=== PATIENT | male | born 2005 | race Caucasian/White ===

== ENCOUNTER 2023-06-30 23:04 | Inpatient (IN) ==
[2023-06-30 23:45] LABS: Basophils # (auto) 0.04 K/uL (0.00-0.20); Basophils % (auto) 0.7 %; Eosinophils # (auto) 0.14 K/uL (0.00-0.50); Eosinophils % (auto) 2.4 %; Hematocrit (blood only) 45.9 % (42.0-52.0); Hemoglobin 16.4 g/dl (14.0-18.0); Immature Granulocytes # (auto) 0.01 K/uL (0.01-0.20); Immature Granulocytes % (auto) 0.2 %; Lymphocytes # (auto) 1.36 K/uL (1.20-3.40); Lymphocytes % (auto) 23.4 %; Mean Corpuscular Hemoglobin 31.9 pg (25.0-34.0); Mean Corpuscular Hgb Conc 35.7 g/dL (32.0-36.0); Mean Corpuscular Volume 89.3 fL (80.0-100.0); Mean Platelet Volume 9.7 fL (9.4-12.4); Monocytes # (auto) 0.54 K/uL (0.11-0.59); Monocytes % (auto) 9.3 %; Neutrophils # (auto) 3.71 K/uL (1.40-6.50); Platelet Count 227 K/uL (130-400); RDW Coefficient of Variation 12.7 % (11.5-14.5); RDW Standard Deviation 41.6 fL (36.4-46.3); Red Blood Count 5.14 M/uL (4.70-6.10)
[2023-06-30 23:58] LABS: Albumin Globulin Ratio 1.7 (0.9-2); Albumin Level 4.7 gm/dl (3.4-5.0); BUN Creatinine Ratio 9.9 (10-20); Calcium 9.2 mg/dl (8.6-10.3); Creatinine Clr Calc Pharmacy 140.3 ml/min; Est GFR (African American) 140.1 ml/min; Est GFR (Non-African American) 120.9 ml/min; Globulin 2.7 gm/dl (2.5-4.0); Potassium 3.9 mmol/L (3.5-5.1); Total Protein 7.4 gm/dl (6.0-8.3)
[2023-07-01 00:08] LABS: Acetaminophen < 3 ug/ml (10-30); Salicylate < 3.0 mg/dl (3.0-30)
--- NOTE | 2023-07-01 00:08 | Emergency Department Note ---
Impression & Plan Suicidal ideation ED Provider Note NAME: VERNELL LAWSON AGE: 18 SEX: M : 2005 ARRIVES VIA: Walk-In INFORMANT: [Patient][mother] ED PROVIDER(S): [Weston Carreno MD] CHIEF COMPLAINT: Mental health evaluation HISTORY OF PRESENT ILLNESS: The patient is a 18-year-old male who presents to the ER with some suicidal thoughts and feelings of depression. The patient has been depressed for some time. He states that his life really is what has and depressed. He is working full-time, he has issues financially and with his car. The tipping stone though for him was a recent DUI. The patient feels that everything is a mess in his life right now. He has had some suicidal thoughts. He has thought about finding a gun although he currently has no access to a weapon. He has thought about crashing his car. He reached out to his mother today, he presents for evaluation asking for a voluntary inpatient psychiatric admission. The patient is not currently on any psychiatric medication. He has not seen a therapist or counselor or psychiatrist. He has never been hospitalized for psychiatric reasons. As per the mother, there are guns in the home although, she does not think he knows where they are located. PMHx/PSHx/Social Hx: See Below PHYSICAL EXAM: GENERAL: Patient is in no acute distress. HEENT: No acute trauma, normocephalic atraumatic, mucous membranes moist, no nasal congestion. NECK: No stridor, no adenopathy, no meningismus, trachea is midline. LUNGS: Clear to auscultation bilaterally, no wheeze, no rhonchi, breath sounds equal. HEART: Without murmurs gallops or rubs, regular rate and rhythm. ABDOMEN: Soft, nontender, no peritonitis. EXTREMITIES: No cyanosis, full range of motion of all the joints without pain or difficulty. NEUROLOGIC: Oriented x 3, no acute motor or sensory deficits, no focal weakness. SKIN: No jaundice, no diaphoresis. Psychiatric: Cooperative, voluntary, admits to suicidal ideation. DIFFERENTIAL DIAGNOSIS: Psychosis, depression, anxiety, thyroid disorder, drug abuse, suicidality, among others. EMERGENCY DEPARTMENT PROCEDURES: MEDICAL DECISION MAKING: There is no leukocytosis or concerning anemia. There is a normal platelet count. No renal failure or significant electrolyte abnormality. No concerning liver enzyme elevation. Patient appears to be in a euthyroid state. Urinalysis does not show infection. Aspirin, Tylenol and alcohol levels were undetectable. COVID test was negative. Urine tox was positive for marijuana. Patient presents with suicidal ideation. He was voluntary. He was felt medically clear. The patient was seen by psychiatry case management. He was referred to our psychiatric floor, 3 S. The patient was accepted voluntarily onto 3 S. Inpatient psychiatric care is warranted. The appropriate paperwork was completed and signed. Prior/Outside records/notes reviewed: None Imaging/x-ray results per my interpretation: Chronic Medical/Social conditions affecting care: Care/Management discussed with: Psychiatry case management Level of care consideration(s): After review of the information above and other included data: --I believe the patient requires escalation of care to admission DISPOSITION: Voluntary psychiatric admission. Past Med/Surg History Medical History Psoriasis Social History Smoking Status: Never smoker Preferred Language: Czech Feels Safe at Home: Yes Gender Identity: Male Allergies Allergies Allergy/AdvReac Type Severity Reaction Status Date / Time No Known Allergies Allergy Verified 07/01/23 00:56 Home Meds Home Medications Medication Instructions Recorded Confirmed No Known Home Medications 07/01/23 07/01/23 Results & Data (ED) Vital Signs Vital Signs - 24 hr 06/30/23 23:07 06/30/23 23:44 Temperature 36.5 C Temperature Source Temporal Artery Scan Pulse Rate 68 Respiratory Rate 18 20 Respiratory Effort / Characteristics Non-Labored Spontaneous Respiratory Depth Normal Blood Pressure 130/76 Blood Pressure [Right Arm] 135/68 Blood Pressure Mean 94 Blood Pressure Mean [Right Arm] 90 Pulse Oximetry 99 96 Oxygen Delivery Method Room Air Room Air Sepsis Recent Fever Within 48 Hours No Sepsis New/Unexplained Change in Mental Status N/A Sepsis Action Taken by Nursing No Action Required Home Medications Current Medication List: was personally reviewed by me Laboratory Data Attestation: I reviewed the patient's lab results. 06/30/23 23:20 06/30/23 23:20 Lab Results 06/30/23 06/30/23 07/01/23 Range/Units 23:20 Unknown 00:32 WBC 5.80 (4.8-10.8) K/ul RBC 5.14 (4.70-6.10) M/uL Hgb 16.4 (14.0-18.0) g/dl Hct 45.9 (42.0-52.0) % MCV 89.3 (80.0-100.0) fL MCH 31.9 (25.0-34.0) pg MCHC 35.7 (32.0-36.0) g/dL RDW Std Deviation 41.6 (36.4-46.3) fL RDW Coeff of Rhonda 12.7 (11.5-14.5) % Plt Count 227 (130-400) K/uL MPV 9.7 (9.4-12.4) fL Immature Gran % (Auto) 0.2 % Neut % (Auto) 64.0 % Lymph % (Auto) 23.4 % [place] % (Auto) 9.3 % Eos % (Auto) 2.4 % Baso % (Auto) 0.7 % Neut # (Auto) 3.71 (1.40-6.50) K/uL Lymph # (Auto) 1.36 (1.20-3.40) K/uL [place] # (Auto) 0.54 (0.11-0.59) K/uL Eos # (Auto) 0.14 (0.00-0.50) K/uL Baso # (Auto) 0.04 (0.00-0.20) K/uL Immature Gran # (Auto) 0.01 (0.01-0.20) K/uL Sodium 138 (136-145) mmol/L Potassium 3.9 (3.5-5.1) mmol/L Chloride 106 (98-107) mmol/L Carbon Dioxide 25 (21-32) mmol/L Anion Gap 7 (3-11) BUN 9 (6-23) mg/dl Creatinine 0.91 (0.6-1.4) mg/dl Est Cr Clr Drug Dosing 140.3 ml/min Est GFR ( Amer) 140.1 ml/min Est GFR (Non-Af Amer) 120.9 ml/min BUN/Creatinine Ratio 9.9 L (10-20) Glucose 94 (70-99(Fasting)) mg/dl Calcium 9.2 (8.6-10.3) mg/dl Total Bilirubin 1.0 (0.2-1.0) mg/dl AST 14 (13-39) U/L ALT 10 (7-52) U/L Alkaline Phosphatase 60 (34-104) U/L Total Protein 7.4 (6.0-8.3) gm/dl Albumin 4.7 (3.4-5.0) gm/dl Globulin 2.7 (2.5-4.0) gm/dl Albumin/Globulin Ratio 1.7 (0.9-2) TSH 0.451 (0.300-4.500) uIu/ml Urine Color Yellow Urine Appearance Clear (Clear) Urine pH 6.5 (4.5-7.5) Ur Specific [place] 1.008 (1.000-1.030) Urine Protein Negative (Negative) Urine Glucose (UA) Negative (Negative) Urine Ketones Negative (Negative) Urine Blood Negative (Negative) Urine Nitrite Negative (Negative) Urine Bilirubin Negative (Negative) Urine Urobilinogen Negative (Negative) Ur Leukocyte Esterase Negative (Negative) Salicylates < 3.0 L (3.0-30) mg/dl Urine Opiates Screen Neg (Neg) Ur Methadone, Qual Neg (Neg) Acetaminophen < 3 L (10-30) ug/ml Urine Barbiturates Neg (Neg) Ur Phencyclidine (PCP) Neg (Neg) U Amphetamin/Meth Scrn Neg (Neg) MDMA (Ecstasy) Screen Neg (Neg) U Benzodiazepines Scrn Neg (Neg) Ur Cocaine Metabolite Neg (Neg) U Marijuana (THC) Screen Pos H (Neg) Ethyl Alcohol mg/dL < 10.0 (<10.0) mg/dl SARS-CoV-2, RNA, NAAT NEGATIVE (NEGATIVE) Discharge Plan Visit Data Chief Complaint: Mental Health Evaluation Stated Complaint: THOUGHTS OF SELF HARM, ANXIETY/DEPRESSION ED Provider: Weston Carreno Discharge Problem: Suicidal ideation Patient Disposition: Admitted As Inpatient Condition: Good Forms Stand Alone Forms: [facility], Suicide Prevention Resources Prescriptions Prescriptions: No Action No Known Home Medications Referrals Referrals: PCP,NO [Physician] -
[2023-07-01 00:13] LABS: Thyroid Stimulating Hormone 0.451 uIu/ml (0.300-4.500)
[2023-07-01 00:43] LABS: Appearance Urine Clear (Clear); Bilirubin Urine Negative (Negative); Blood Urine Negative (Negative); Color Urine Yellow; Glucose Urine UA Negative (Negative); Ketones Urine Negative (Negative); Leukocyte Esterase Urine Negative (Negative); Nitrite Urine Negative (Negative); Protein Urine Negative (Negative); Specific Gravity Urine 1.008 (1.000-1.030); Urobilinogen Urine Negative (Negative); pH Urine 6.5 (4.5-7.5)
[2023-07-01 01:15] LABS: Amphetamines+Metham, Urine Neg (Neg); Barbiturates, Urine Neg (Neg); Benzodiazepine, Urine Neg (Neg); Cocaine, Urine Neg (Neg); MDMA (Ecstacy), Urine Neg (Neg); Marijuana, Urine Pos (Neg); Methadone, Urine Neg (Neg); Opiate, Urine Neg (Neg); Phencyclidine, Urine Neg (Neg)
[2023-07-01] MEDS ORDERED: ACETAMINOPHEN 325 MG TAB PO PRN (02:50)
[2023-07-01] MEDS ORDERED: BISMUTH SUBSALICYLATE LIQD 236 ML PO PRN (02:50)
[2023-07-01] MEDS ORDERED: ALUMINUM/MAGNESIUM SUSP 30 ML UDC PO PRN (02:50)
[2023-07-01] MEDS ORDERED: SODIUM CHLORIDE 0.65% NA SOLN 45 ML (OCEAN) PRN (02:50)
[2023-07-01] MEDS ORDERED: hydrOXYzine HCl 25 MG TAB PO PRN (02:50)
[2023-07-01] MEDS ORDERED: MAGNESIUM HYDROXIDE SUSP 30 ML UDC PO PRN (02:50)
[2023-07-01] MEDS: NICOTINE POLACRILEX 2 MG GUM MT PRN (10:24)
[2023-07-01] MEDS: NICOTINE 21 MG/24 HR TDSY TD SCH (11:08)
[2023-07-01] MEDS: buPROPion SR 100 MG TABCR PO SCH (12:08)
--- NOTE | 2023-07-01 17:14 | History & Physical ---
Date of Service July 01, 2023 Impression / Recommendations Impression 18 yo male with hx of depressive symptoms with anxious distress in high school, recurring SI over course of past year, actual act of furtherance 8 months ago, current SI with multiple plans upon admission. Overall, I spent a total of 58 minutes with this case, including review of chart, direct evaluation of the patient, counseling the patient, ordering medication, coordination with nursing, risk assessment, and documentation. (1) Major depression, recurrent: (2) Alcohol abuse: Plan The patient was admitted to the [facility] ([facility] health unit) on q15 min checks (behavioral with suicide precautions) for safety. The patient will participate in group, recreational, and milieu therapies and will be offered additional individual and family sessions as clinically appropriate. Risks/benefits/alternatives reviewed re: antidepressants for the treatment of depression and/or anxiety. Discussion included but was not limited to FDA warnings re: suicidality in adolescents and young adults. The patient agreed to a trial of Wellbutrin SR 100 mg po qam to start with plan to titrate. The patient's AUDIT score suggests problematic drinking (Zone III WHO). Brief intervention was offered and accepted (greater than 5 min in length) and included impact of his past drinking on health given withdrawal and recent legal issues. caseworker intake will also assist in anticipating barriers to sobriety and in problem-solving for solutions to those problems while arranging for referral to appropriate treatment. The patient is in contemplation stage with regards to transtheoretical model of change. The patient will be encouraged to abstain from alcohol given age and legal. Inventory Assets Strengths: love of family, employed in his vocation of choice Needs: improve coping, safety plan Suicide Risk Level Suicide Risk Level: High-Moderate (q15 min suicide checks) Risk Factors Assessment Male: Yes : Yes Do You Have Access To A Gun?: Yes Health Problems: No Mental Health Diagnoses: Yes Substance Use Disorders: Yes (hx of binge drinking) Previous Attempt: No Previous Psychiatric Hospitalization: No Protective Factors Assessment Employed: Yes ([employer]) Stable Relationships: Yes Supportive Family: Yes Psychiatric History Identifying Data VERNELL LAWSON is a 18-year-old M who currently lives in [place], has a history of nonspecific anxiety in high school, and was admitted on 07/01/23 01:56 on a 201 voluntary commitment for SI with plans. Chief Complaint "[]". History of Present Illness History from ED CM reviewed and confirmed with patient: Met with pt to complete MH and suicide risk assessments. Pts mother present. Pt was arrested last night for a DUI. States he feels like he is at rock bottom and needs help. Pt reports that he has had depression since approximately age 10 or 11 and it has significantly worsened recently. He endorses SI that began approximately 7 to 8 months ago which has become more intrusive. He endorses a plan to either get a gun or crash his car. Pts mother states there are firearms in the home but she is unsure if pt knows where they are. Pt denies self-injury, AH/VH/HI. He reports increasing anxiety with frequent panic attacks. Pt reports that his father a few years ago and since then he has felt like his life is falling apart. He states that about 8 months ago he wrote a suicide note and gathered some pills but did not go through with an attempt. He has no history of inpatient treatment and does not currently have any outpatient providers. Denies any significant medical history. Reports binge drinking alcohol 1 or 2 times a week and vapes THC daily. Denies further drug involvement. Pt does report decreased appetite recently along with poor sleep and night terrors. He is seeking inpatient treatment at this time. Process for medical clearance explained with pt verbalizing understanding. Patient reports strong family relationships and love of his job but that his anxiety about the DUI was "last straw". He is open to medication, doesn't really recall what he took in past through PCP. States his main concern is inattention and he was distractible but also construction outside of the window. He denied manic symptoms. He has cut back his ETOH use significantly in 2023, actually described some mild withdrawal symptoms in stopping drinking hard liquor 4 times a week (half of a fifth) in fall. Only a "few beers" with friends in 2023. 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.) Allergies Allergy/AdvReac Type Severity Reaction Status Date / Time No Known Allergies Allergy Verified 07/01/23 00:56 Home Medications Medication Instructions Recorded Confirmed Type No Known Home Medications 07/01/23 07/01/23 History Family History Family History of: Depression and Anxiety Family Mental Health History Comment: significant family hx on maternal and paternal side Alcohol History Hx of Alcohol Use Over the Past 12 Months: Yes AUDIT Total Score: 11 Smoking Use Have You Smoked or Used Tobacco Products in the Last 30 Days: Yes tobacco type: e-cigarettes Smoking Status: Never smoker Substance History Hx of Prescription Med Misuse Over the Past 12 Months: No Hx of Over the Counter Med Misuse Over the Past 12 Months: No Hx of Inhalent Misuse Over the Past 12 Months: No Hx of Organic Substance Use Over the Past 12 Months: Yes Hx of Illegal Substances/Street Drug Use Over Past 12 Months: No Problems as a Result of Past Substance Use: Arrested Personal History Living Arrangements: Home Highest Grade Completed: Vocational Training 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 Marital Status: Single Number Of Children: 0 Beliefs That Will Affect Care: None Legal Problems Comment: Pt got a DUI "the other night", unknown legal consequences Hx Traumatic Life Events: No Patient History Medical History Psoriasis Social History Smoking Status: Never smoker Preferred Language: Latvian Communication Ability: Effective [employer] Required: No Beliefs That Will Affect Care: None Feels Safe at Home: Yes Gender Identity: Male Assistive Devices: None Review of Systems Review of Systems: All systems reviewed & are unremarkable except as noted in HPI & below Physical Exam Psychiatric: Orientation: alert and oriented x 3 Apperance: appropriately dressed and appropriately groomed Eye Contact: good eye contact Motor Behavior: no abnormal motor movements Speech: normal rate/rhythm/volume of speech Affect: euthymic affect Mood: + depressed mood and + anxious mood Thought Process: goal directed thought process Thought Content: reality based without delusions Suicidal Thoughts: denies suicidal thoughts Homicidal Thoughts: denies homicidal thoughts Hallucinations: no auditory hallucinations and no visual hallucinations Cognition: attention grossly intact and language grossly intact Estimated Intelligence: consistent with education level Insight: + limited insight Judgment: + limited judgement Vital Signs (Past 24 Hours): Last Vital Signs Temp 36.6 C 07/01/23 06:31 Pulse 49 L 07/01/23 06:33 Resp 16 07/01/23 06:31 BP 105/66 07/01/23 06:33 Pulse Ox 100 07/01/23 02:53 O2 Del Method Room Air 07/01/23 02:53 Exam Statement: A physical exam was performed in the ED by Dr. Carreno for the purposes of medical clearance. I accept that physical as correct and adequate for the purposes of the inpatient physical exam. Results & Data ([facility]) Laboratory Results Laboratory Results - last 24 hr 06/30/23 06/30/23 07/01/23 23:20 Unknown 00:32 WBC 5.80 RBC 5.14 Hgb 16.4 Hct 45.9 MCV 89.3 MCH 31.9 MCHC 35.7 RDW Std Deviation 41.6 RDW Coeff of Rhonda 12.7 Plt Count 227 MPV 9.7 Immature Gran % (Auto) 0.2 Neut % (Auto) 64.0 Lymph % (Auto) 23.4 [place] % (Auto) 9.3 Eos % (Auto) 2.4 Baso % (Auto) 0.7 Neut # (Auto) 3.71 Lymph # (Auto) 1.36 [place] # (Auto) 0.54 Eos # (Auto) 0.14 Baso # (Auto) 0.04 Immature Gran # (Auto) 0.01 Sodium 138 Potassium 3.9 Chloride 106 Carbon Dioxide 25 Anion Gap 7 BUN 9 Creatinine 0.91 Est Cr Clr Drug Dosing 140.3 Est GFR ( Amer) 140.1 Est GFR (Non-Af Amer) 120.9 BUN/Creatinine Ratio 9.9 L Glucose 94 Calcium 9.2 Total Bilirubin 1.0 AST 14 ALT 10 Alkaline Phosphatase 60 Total Protein 7.4 Albumin 4.7 Globulin 2.7 Albumin/Globulin Ratio 1.7 TSH 0.451 Urine Color Yellow Urine Appearance Clear Urine pH 6.5 Ur Specific [place] 1.008 Urine Protein Negative Urine Glucose (UA) Negative Urine Ketones Negative Urine Blood Negative Urine Nitrite Negative Urine Bilirubin Negative Urine Urobilinogen Negative Ur Leukocyte Esterase Negative Salicylates < 3.0 L Urine Opiates Screen Neg Ur Methadone, Qual Neg Acetaminophen < 3 L Urine Barbiturates Neg Ur Phencyclidine (PCP) Neg U Amphetamin/Meth Scrn Neg MDMA (Ecstasy) Screen Neg U Benzodiazepines Scrn Neg Ur Cocaine Metabolite Neg U Marijuana (THC) Screen Pos H U Marijuana THC Carboxy Pending Drug Screen Comment Pending Ethyl Alcohol mg/dL < 10.0 SARS-CoV-2, RNA, NAAT NEGATIVE Current Inpatient Medications Current Inpatient Medications: Current Inpatient Medications Acetaminophen (Acetaminophen 325 Mg Tab) 650 mg PO Q4H PRN PRN Reason: Headache or Minor Fever Stop: 07/31/23 02:49 Al Hydrox/Mg Hydrox/Simethicone (Aluminum/Magnesium Susp 30 Ml Udc) 30 ml PO Q4H PRN PRN Reason: GI Upset Stop: 07/31/23 02:49 Bismuth Subsalicylate (Bismuth Subsalicylate Liqd 236 Ml) 15 ml PO PRN PRN PRN Reason: Loose Stool Stop: 07/31/23 02:49 Bupropion HCl (Bupropion Sr 100 Mg Tabcr) 100 mg PO QAM [facility] Stop: 07/31/23 10:29 Last Admin: 07/01/23 12:08 Dose: 100 mg Hydroxyzine HCl (Hydroxyzine Hcl 25 Mg Tab) 50 mg PO HSZ PRN PRN Reason: Insomnia Stop: 07/31/23 02:49 Hydroxyzine HCl (Hydroxyzine Hcl 25 Mg Tab) 25 mg PO Q4H PRN PRN Reason: Anxiety Stop: 07/31/23 02:49 Magnesium Hydroxide (Magnesium Hydroxide Susp 30 Ml Udc) 30 ml PO DAILY PRN PRN Reason: Constipation Stop: 07/31/23 02:49 Miscellaneous (Remove Nicoderm Patch) 1 each N/A DAILY@0859 [facility] Stop: 08/01/23 08:58 Nicotine (Nicotine 21 Mg/24 Hr Tdsy) [facility] Stop: 07/31/23 10:14 Last Admin: 07/01/23 11:08 Dose: 21 mg Nicotine Polacrilex (Nicotine Polacrilex 2 Mg Gum) 2 piece MT PRN PRN PRN Reason: Nicotine Withdrawal Symptoms Stop: 07/31/23 02:49 Last Admin: 07/01/23 14:23 Dose: 2 piece Sodium Chloride (Sodium Chloride 0.65% Na Soln 45 Ml ([place])) 1 - 2 sprays NA PRN PRN PRN Reason: Nasal Dryness/Congestion Stop: 07/31/23 02:49
[2023-07-01] MEDS: hydrOXYzine HCl 25 MG TAB PO PRN (21:31)
--- NOTE | 2023-07-02 11:41 | Psychiatric Progress Note ---
Date of Service July 02, 2023 Impression / Recommendations Impression 18 yo male with hx of depressive symptoms with anxious distress in high school, recurring SI over course of past year, actual act of furtherance 8 months ago, current SI with multiple plans upon admission. Overall, I spent a total of 37 minutes with this case, including review of chart, direct evaluation of the patient, counseling the patient, coordination with nursing, risk assessment, and documentation. (1) Major depression, recurrent: (2) Alcohol abuse: Plan 07/02/23: continue current medication and treatment plan, safety planning. 07/01/23: The patient was admitted to the [facility] ([facility] mental health unit) on q15 min checks (behavioral with suicide precautions) for safety. The patient will participate in group, recreational, and milieu therapies and will be offered additional individual and family sessions as clinically appropriate. Risks/benefits/alternatives reviewed re: antidepressants for the treatment of depression and/or anxiety. Discussion included but was not limited to FDA warnings re: suicidality in adolescents and young adults. The patient agreed to a trial of Wellbutrin SR 100 mg po qam to start with plan to titrate. The patient's AUDIT score suggests problematic drinking (Zone III WHO). Brief intervention was offered and accepted (greater than 5 min in length) and included impact of his past drinking on health given withdrawal and recent legal issues. liner worker will also assist in anticipating barriers to sobriety and in problem-solving for solutions to those problems while arranging for referral to appropriate treatment. The patient is in contemplation stage with regards to transtheoretical model of change. The patient will be encouraged to abstain from alcohol given age and legal. Inventory Assets Strengths: love of family, employed in his vocation of choice Needs: improve coping, safety plan Suicide Risk Level Suicide Risk Level: Moderate (q15 min suicide checks) Risk Factors Assessment Male: Yes : Yes Do You Have Access To A Gun?: Yes Health Problems: No Mental Health Diagnoses: Yes Substance Use Disorders: Yes (hx of binge drinking) Previous Attempt: No Previous Psychiatric Hospitalization: No Protective Factors Assessment Employed: Yes ([employer]) Stable Relationships: Yes Supportive Family: Yes Interval History Identifying Information VERNELL LAWSON is a 18-year-old M who currently lives in [place], has a history of nonspecific anxiety in high school, and was admitted on 07/01/23 01:56 on a 201 voluntary commitment for SI with plans. Chief Complaint "I feel so much better". Review of Systems Sleep Information Total Hours of Sleep: 6.5 Sleep Comments: [place] e admission, Pt to bed at 0230 Meal Information Percent Meal Consumed - Breakfast: 30 Percent Meal Consumed - Lunch: 100 Percent Meal Consumed - Dinner: 100 Subjective Subjective Patient was seen & assessed and interval progress reviewed with treatment team. He was hoping to leave later today and represents that mother supports this. Reviewed my concerns about the severity of his thoughts prior to admission. He is tolerating medication so far. He is agreeable to stay for a family meeting and aftercare planning and declined a 72 hr notice. Physical Exam Psychiatric Orientation: alert and oriented x 3 Apperance: appropriately dressed and appropriately groomed Eye Contact: good eye contact Motor Behavior: no abnormal motor movements Speech: normal rate/rhythm/volume of speech Affect: euthymic affect Mood: + anxious mood; no depressed mood Thought Process: goal directed thought process Thought Content: reality based without delusions Suicidal Thoughts: denies suicidal thoughts Homicidal Thoughts: denies homicidal thoughts Hallucinations: no auditory hallucinations and no visual hallucinations Cognition: attention grossly intact and language grossly intact Estimated Intelligence: consistent with education level Insight: + limited insight Judgment: + limited judgement Vital Signs (Past 24 Hours) Last Vital Signs Temp 36.5 C 07/02/23 06:42 Pulse 51 L 07/02/23 06:42 Resp 16 07/02/23 06:42 BP 117/74 07/02/23 06:42 Pulse Ox 100 07/01/23 02:53 O2 Del Method Room Air 07/01/23 02:53 Results & Data ([facility]) Current Inpatient Medications Current Inpatient Medications: Current Inpatient Medications Acetaminophen (Acetaminophen 325 Mg Tab) 650 mg PO Q4H PRN PRN Reason: Headache or Minor Fever Stop: 07/31/23 02:49 Al Hydrox/Mg Hydrox/Simethicone (Aluminum/Magnesium Susp 30 Ml Udc) 30 ml PO Q4H PRN PRN Reason: GI Upset Stop: 07/31/23 02:49 Bismuth Subsalicylate (Bismuth Subsalicylate Liqd 236 Ml) 15 ml PO PRN PRN PRN Reason: Loose Stool Stop: 07/31/23 02:49 Bupropion HCl (Bupropion Sr 100 Mg Tabcr) 100 mg PO QAM DAYANNA Stop: 07/31/23 10:29 Last Admin: 07/02/23 09:11 Dose: 100 mg Hydroxyzine HCl (Hydroxyzine Hcl 25 Mg Tab) 50 mg PO HSZ PRN PRN Reason: Insomnia Stop: 07/31/23 02:49 Last Admin: 07/01/23 21:31 Dose: 50 mg Hydroxyzine HCl (Hydroxyzine Hcl 25 Mg Tab) 25 mg PO Q4H PRN PRN Reason: Anxiety Stop: 07/31/23 02:49 Magnesium Hydroxide (Magnesium Hydroxide Susp 30 Ml Udc) 30 ml PO DAILY PRN PRN Reason: Constipation Stop: 07/31/23 02:49 Miscellaneous (Remove Nicoderm Patch) 1 each N/A DAILY@0859 [facility] Stop: 08/01/23 08:58 Last Admin: 07/02/23 09:12 Dose: 1 each Nicotine (Nicotine 21 Mg/24 Hr Tdsy) 21 mg TD QAM DAYANNA Stop: 07/31/23 10:14 Last Admin: 07/02/23 09:11 Dose: 21 mg Nicotine Polacrilex (Nicotine Polacrilex 2 Mg Gum) 2 piece MT PRN PRN PRN Reason: Nicotine Withdrawal Symptoms Stop: 07/31/23 02:49 Last Admin: 07/02/23 09:14 Dose: 2 piece Sodium Chloride (Sodium Chloride 0.65% Na Soln 45 Ml ([place])) 1 - 2 sprays NA PRN PRN PRN Reason: Nasal Dryness/Congestion Stop: 07/31/23 02:49 Mental Health & Subst Abuse Tx Psychiatrist Date Of Appointment With Psychiatric Provider: ASHLEY Therapist Name of Therapist: ASHLEY Pan Shover Name of Pan Shover: NA Post Discharge Appointments Primary Care Physician Name Of Family Doctor/PCP: ASHLEY
--- NOTE | 2023-07-03 12:08 | Discharge Summary ---
Date of Service July 03, 2023 History of Present Illness History from ED CM reviewed and confirmed with patient: Met with pt to complete MH and suicide risk assessments. Pts mother present. Pt was arrested last night for a DUI. States he feels like he is at rock bottom and needs help. Pt reports that he has had depression since approximately age 10 or 11 and it has significantly worsened recently. He endorses SI that began approximately 7 to 8 months ago which has become more intrusive. He endorses a plan to either get a gun or crash his car. Pts mother states there are firearms in the home but she is unsure if pt knows where they are. Pt denies self-injury, AH/VH/HI. He reports increasing anxiety with frequent panic attacks. Pt reports that his father a few years ago and since then he has felt like his life is falling apart. He states that about 8 months ago he wrote a suicide note and gathered some pills but did not go through with an attempt. He has no history of inpatient treatment and does not currently have any outpatient providers. Denies any significant medical history. Reports binge drinking alcohol 1 or 2 times a week and vapes THC daily. Denies further drug involvement. Pt does report decreased appetite recently along with poor sleep and night terrors. He is seeking inpatient treatment at this time. Process for medical clearance explained with pt verbalizing understanding. Patient reports strong family relationships and love of his job but that his anxiety about the DUI was "last straw". He is open to medication, doesn't really recall what he took in past through PCP. States his main concern is inattention and he was distractible but also construction outside of the window. He denied manic symptoms. He has cut back his ETOH use significantly in 2023, actually described some mild withdrawal symptoms in stopping drinking hard liquor 4 times a week (half of a fifth) in fall. Only a "few beers" with friends in 2023. Physical Exam Psychiatric See admission H&P and DOD assessment. Vital Signs (Past 24 Hours) Last Vital Signs Temp 36.4 C L 07/03/23 08:50 Pulse 61 07/03/23 08:50 Resp 16 07/03/23 08:50 BP 110/66 07/03/23 08:50 Pulse Ox 100 07/03/23 08:50 O2 Del Method Room Air 07/01/23 02:53 Principal Diagnosis major depressive disorder Psychiatric Data See daily stay summary. In short, safety was maintained and the patient was cooperative with care. Medication changes included a trial of Wellbutrin and they tolerated this well. The patient requested discharge on 07/02/23 but agreed to stay for a family session and aftercare planning. A safety plan was completed prior to discharge which included confirmation from family that weapons secure. His hospitalization was brief but he has good family support and mother supports discharge. He is agreeable to aftercare. There is no evidence of psychosis, kurt, or AMS interfering with his medical decision making, ie he does not meet criteria for 302 under [place] mental health law at this time. Day of Discharge Assessment Today the patient voices readiness and desire for discharge. They note improvement in mood and deny thoughts to harm self or others. Thoughts remain organized and they are improved from admission. There is no evidence of psychosis. They agree to take mediations as prescribed and keep follow-up appointments. They are stable for discharge to outpatient level of care. Transition of Care Transition Of Care Record: was reviewed with the patient Advance Directives Advance Directives Information Provided: Yes Advance Directives: No Mental Health Advance Directive: No Advance Directives on File: No Living Will: No Power of Senior Recruitment Consultant: No Advance Directives Reason:: Declines as Mental Health Visit. Suicide Risk Level Suicide Risk Level Comments: Suicide risk at discharge is deemed low as the patient is no longer requiring 24-hr monitoring, has a safety plan, and is free of suicidal ideation at discharge. Risk Factors Assessment Male: Yes : Yes Do You Have Access To A Gun?: No Health Problems: No Mental Health Diagnoses: Yes Substance Use Disorders: Yes (hx of binge drinking) Previous Attempt: No Previous Psychiatric Hospitalization: No Protective Factors Assessment Employed: Yes ([employer]) Stable Relationships: Yes Supportive Family: Yes Tobacco Cessation at Discharge Tobacco Cessation Medication Prescribed at Discharge: Offered & Pt Refused Total Time Total Time Spent: Less Than 30 Minutes Discharge Data Lab Results 06/30/23 06/30/23 07/01/23 23:20 Unknown 00:32 WBC 5.80 RBC 5.14 Hgb 16.4 Hct 45.9 MCV 89.3 MCH 31.9 MCHC 35.7 RDW Std Deviation 41.6 RDW Coeff of Rhonda 12.7 Plt Count 227 MPV 9.7 Immature Gran % (Auto) 0.2 Neut % (Auto) 64.0 Lymph % (Auto) 23.4 Wise % (Auto) 9.3 Eos % (Auto) 2.4 Baso % (Auto) 0.7 Neut # (Auto) 3.71 Lymph # (Auto) 1.36 Wise # (Auto) 0.54 Eos # (Auto) 0.14 Baso # (Auto) 0.04 Immature Gran # (Auto) 0.01 Sodium 138 Potassium 3.9 Chloride 106 Carbon Dioxide 25 Anion Gap 7 BUN 9 Creatinine 0.91 Est Cr Clr Drug Dosing 140.3 Est GFR ( Amer) 140.1 Est GFR (Non-Af Amer) 120.9 BUN/Creatinine Ratio 9.9 L Glucose 94 Calcium 9.2 Total Bilirubin 1.0 AST 14 ALT 10 Alkaline Phosphatase 60 Total Protein 7.4 Albumin 4.7 Globulin 2.7 Albumin/Globulin Ratio 1.7 TSH 0.451 Urine Color Yellow Urine Appearance Clear Urine pH 6.5 Ur Specific [place] 1.008 Urine Protein Negative Urine Glucose (UA) Negative Urine Ketones Negative Urine Blood Negative Urine Nitrite Negative Urine Bilirubin Negative Urine Urobilinogen Negative Ur Leukocyte Esterase Negative Salicylates < 3.0 L Urine Opiates Screen Neg Ur Methadone, Qual Neg Acetaminophen < 3 L Urine Barbiturates Neg Ur Phencyclidine (PCP) Neg U Amphetamin/Meth Scrn Neg MDMA (Ecstasy) Screen Neg U Benzodiazepines Scrn Neg Ur Cocaine Metabolite Neg U Marijuana (THC) Screen Pos H Ethyl Alcohol mg/dL < 10.0 SARS-CoV-2, RNA, NAAT NEGATIVE Hospital Course (1) Major depression, recurrent: (2) Alcohol abuse: Plan 07/02/23: continue current medication and treatment plan, safety planning. 07/01/23: The patient was admitted to the [facility] ([facility] mental health unit) on q15 min checks (behavioral with suicide precautions) for safety. The patient will participate in group, recreational, and milieu therapies and will be offered additional individual and family sessions as clinically appropriate. Risks/benefits/alternatives reviewed re: antidepressants for the treatment of depression and/or anxiety. Discussion included but was not limited to FDA warnings re: suicidality in adolescents and young adults. The patient agreed to a trial of Wellbutrin SR 100 mg po qam to start with plan to titrate. The patient's AUDIT score suggests problematic drinking (Zone III WHO). Brief intervention was offered and accepted (greater than 5 min in length) and included impact of his past drinking on health given withdrawal and recent legal issues. personnel worker will also assist in anticipating barriers to sobriety and in problem-solving for solutions to those problems while arranging for referral to appropriate treatment. The patient is in contemplation stage with regards to transtheoretical model of change. The patient will be encouraged to abstain from alcohol given age and legal. Mental Health & Subst Abuse Tx Psychiatrist Name of Psychiatrist: Michael Chang Psychiatrist's Date Of Appointment With Psychiatric Provider: 07/14/2023 Time of Appointment with Psychiatrist: 9:30am Psychiatric Appointment Comment: [address] [place] [address] Psychiatrist Release of Information: Obtained, Reviewed and Signed Therapist Name of Therapist: [facility] The[facility]ist's Date of Therapist Appointment: 07/07/2023 Time of Therapist Appointment: 10:30am Therapy Appointment Comment: [address] [place], [place] Therapist Release of Information: Obtained, Reviewed and Signed Rail Transportation Tabeler Name of Rail Transportation Tabeler: . Post Discharge Appointments Primary Care Physician Name Of Family Doctor/PCP: [facility] Time of Appointment with PCP: please follow up as needed Provider Appointment Comment: [address] [place] [address] Primary Care Release of Information: Obtained, Reviewed and Signed Smoking Cessation Counseling Tobacco Cessation Medication Prescribed at Discharge: Offered & Pt Refused Tobacco Cessation Counseling: Offered and Refused Contact Information Discharge Discharge Address: [address] [place] [id number] Discharge Plan Discharge Items Patient Disposition: Home - Self-Care Reason For Visit: MAJOR DEPRESSIVE DISORDER Discharge Diagnosis: same Condition on Discharge: Good Activity: Resume your previous activity Non-emergency contact: Primary Care Provider and Therapist Call non-emergency contact if: you have any medication questions and your symptoms worsen Follow-up/Referrals: Elvia Flores PA-C [Primary Care Provider] - Diet: Regular Addtl Attending Provider Instructions: SPECIAL CARE INSTRUCTIONS: 1. Follow through with your scheduled aftercare appointments. If unable to keep an appointment, please call to reschedule. 2. Take your medication only as prescribed. Medication should not be changed or stopped without the approval of your doctor. In the event of worsening symptoms or concerns about side effects, contact your doctor immediately. 3. Utilize new healthy coping skills, anger management skills, and stress management skills learned during your hospitalization. Journal feelings and process them with a support person. Identify stressors or situations that may result in relapse, deterioration or inappropriate behaviors and develop a plan to deal with those issues. 4. If your coping skills are ineffective and you are in crisis, contact your outpatient providers for direction. If unable to reach your providers, please call the [facility] CRISIS LINE AT , go to the [facility] walk-in center at [address], [address], [place], or go to the closest Emergency Room. 5. Avoid alcohol and un-prescribed drugs. 6. You have been provided with the Mental Health Advance Directives Pamphlet for your review. 7. Your condition is stable for discharge to outpatient level of care, but recovery is an ongoing process. Ifthoughts to harm yourself or others return, follow the safety plan developed during your stay. Planning for a safe return home includes securing weapons. Our treatment team recommends weaponsbe removed from the home until your outpatient provider reassesses your progress. In rare cases where the items themselvescannot be removed, guns and ammunitionshould be secured separatelyand keys stored by a reliable personoutside of the home. If you were admitted on an involuntary commitment, the police or other legal authorities may be involved in this process. AFTERCARE APPOINTMENTS: * Please call your insurance company prior to your scheduled appointment to confirm your aftercare providers are covered. Take your insurance information to your appointments. WHO TO CALL AND WHEN: Medical Emergencies: For questions or emergencies related to your hospital stay, please contact the Inpatient Behavioral Health Unit at [phone]. A make up operator helper is on-call 09/12 for the Behavioral Health Unit for emergencies At any time you feel your situation is an emergency, you may also call 911 immediately. Pending Studies at Discharge: No Stand-Alone Forms: My [employer], Smoking Cessation Medications and DC Order Prescriptions: New bupropion HCl 100 mg Tablet Sustained-Release 12 Hr 100 mg PO QAM Qty: 30 0RF Discharge Orders: Discharge Order (Routine); Ordered 07/03/23 Ordered By: Pia Olson Admission Data Admit Date/Time: 07/01/23 01:56 Attending Provider: Pia Olson Admit Provider: Pia Olson Primary Care Provider: Elvia Flores Other Interventions: Discharge Summary Assessment (RN) Last Done: 07/03/23 08:50 PSY Interdisciplinary Discharge Planning Last Done: 07/03/23 08:54 Coding Level of Care Code 40313 D/C day mgmt 30 min or < Diagnoses Major depression, recurrent F33.9 Alcohol abuse F10.10
[2023-07-03 19:42] LABS: Marijuana Quant, GCMS Urine 362 ng/mL (<5)
== END 2023-07-03 09:19 | disposition home or self-care (01) | DRG 885 ==
LOC: ED 23:04 → 3S 07-01 01:56